=== PATIENT | female | born 2005 | race Hispanic/Latino ===

== ENCOUNTER 2025-01-31 16:19 | Emergency (ER) | payer OTHER | END 2025-01-31 18:13 | disposition home or self-care (01) | LOC: CSHERS 16:19 | DX: O99.713 Diseases of the skin and subcutaneous tissue complicating pregnancy, third trimester (principal); L25.9 Unspecified contact dermatitis, unspecified cause; Z3A.28 28 weeks gestation of pregnancy | CPT/HCPCS: 99282 ==

== ENCOUNTER 2025-04-16 03:53 | Inpatient (IN) | payer OTHER ==
[2025-04-16 04:35] VITALS: BMI 36.5
[2025-04-16] MEDS ORDERED: hydrALAZINE 20 MG/ML VIAL SLOW IVP PRN (05:23)
[2025-04-16] MEDS ORDERED: Diphenoxylate HCl/Atropine Tablet PO PRN ×2 (09:30)
[2025-04-16] MEDS ORDERED: Ondansetron PF 4 MG/2 ML Vial IVP PRN ×2 (09:30→15:04)
[2025-04-16] MEDS ORDERED: Tranexamic Acid 1,000 MG/10 ML VIAL IVP PRN (09:30)
[2025-04-16] MEDS ORDERED: Oxytocin 30 units/NS 500 ML 500 ML IV SCH ×2 (09:30)
[2025-04-16] MEDS ORDERED: Acetaminophen 500 MG TAB PO PRN (09:30)
[2025-04-16] MEDS ORDERED: Lidocaine 1% (PF) 30 ML VIAL SC PRN (09:30)
[2025-04-16] MEDS ORDERED: Carboprost 250 MCG/ML AMP IM PRN (09:30)
[2025-04-16] MEDS ORDERED: Methylergonovine 0.2 MG/ML VIAL IM PRN (09:30)
[2025-04-16 09:43] LABS: Hematocrit 34.1 % (34.9-44.5); Hemoglobin 11.4 g/dL (12.0-15.5); Mean Corpuscular Hemoglobin 29.4 pg (27.0-33.0); Mean Corpuscular Volume 87.9 fL (81.6-98.3); Platelet Count 208 10x3/uL (150-450); Red Blood Cell (RBC) Count 3.88 10x6/uL (3.90-5.03); White Blood Cell (WBC) Count 10.00 10x3/uL (3.5-10.5)
[2025-04-16 10:11] LABS: Hep B Surf Ag - L&D Non-Reactive S/CO (NonReactive)
[2025-04-16 10:13] LABS: Syphilis Antibody Index 0.04 S/CO (<1.00 Non-Reactive)
[2025-04-16] MEDS: fentaNYL/Ropivacaine Epidural 100 ML ONE (14:02)
[2025-04-16] MEDS ORDERED: diphenhydrAMINE 50 MG/ML VIAL IVP PRN (15:04)
[2025-04-16] MEDS ORDERED: Acetaminophen 325 MG TAB PO PRN (15:04)
[2025-04-16] MEDS ORDERED: fentaNYL 2 mcg/Ropivacaine 0.2% Epidural 100 ML CADD EPIDURAL SCH (15:15)
[2025-04-16] MEDS: Ibuprofen 800 MG TAB PO PRN (23:39)
[2025-04-17] MEDS ORDERED: Methylergonovine 0.2 MG/ML VIAL IM PRN (02:18)
[2025-04-17] MEDS ORDERED: diphenhydrAMINE 25 MG CAP PO PRN (02:18)
[2025-04-17] MEDS ORDERED: Ondansetron PF 4 MG/2 ML Vial IVP PRN (02:18)
[2025-04-17] MEDS ORDERED: Preparation H Ointment 28 GM TUBE PR PRN (02:18)
[2025-04-17] MEDS ORDERED: Bisacodyl 10 MG SUPP PR PRN (02:18)
[2025-04-17] MEDS ORDERED: Oxytocin 30 units/NS 500 ML 500 ML IV SCH (02:18)
[2025-04-17] MEDS ORDERED: hydrALAZINE 20 MG/ML VIAL SLOW IVP PRN (02:18)
[2025-04-17] MEDS ORDERED: Milk Of Magnesia 30 ML UDCUP PO PRN (02:18)
[2025-04-17] MEDS ORDERED: Boostrix 0.5 ML (Tdap) VIAL (>/=7 yrs of age) IM ONE (02:18)
[2025-04-17] MEDS ORDERED: Lanolin Ointment 7 GM TUBE TOP PRN (02:18)
[2025-04-17] MEDS: Ibuprofen 800 MG TAB PO SCH (08:37)
[2025-04-17] MEDS: Ferrous Sulfate 325 MG TAB PO SCH (08:39)
[2025-04-17] MEDS ORDERED: Bupivacaine 0.25% HCL 30 ML VIAL ONE (18:28)
[2025-04-17] MEDS: Benzocaine-Menthol 82.5 ML CAN TOP PRN (20:21)
[2025-04-18 08:14] VITALS: BP 102/55; TEMP 98.3
== END 2025-04-18 12:30 | disposition home or self-care (01) | DRG 806 ==
LOC: CSHLD/OP 03:53 → CSHLD 08:33 → CSHPP 04-17 01:00
PROVIDERS: ADMIT Family Medicine; ATTEND Family Medicine
PROC: 10E0XZZ Delivery of Products of Conception, External Approach (ICD-10-PCS; principal; 2025-04-16)
PROC: 0UQMXZZ Repair Vulva, External Approach (ICD-10-PCS; 2025-04-16)
PROC: 3E03329 Introduction of Other Anti-infective into Peripheral Vein, Percutaneous Approach (ICD-10-PCS; 2025-04-16)
DX: O99.214 Obesity complicating childbirth (principal); N13.30 Unspecified hydronephrosis; Z37.0 Single live birth; O99.02 Anemia complicating childbirth; O71.82 Other specified trauma to perineum and vulva; O69.81X0 Labor and delivery complicated by cord around neck, without compression, not applicable or unspecified; O99.892 Other specified diseases and conditions complicating childbirth; Z3A.39 39 weeks gestation of pregnancy; Z79.899 Other long term (current) drug therapy; Q99.2 Fragile X chromosome
CPT/HCPCS: 36415; 51702; 85027; 86780; 86850; 86900; 86901; 87340; 99285; J0665; J7120